=== PATIENT | female | born 1960 | race Caucasian/White ===

== ENCOUNTER 2020-02-09 20:32 | Emergency (ER) | payer OTHER ==
--- NOTE | 2020-02-09 22:47 | EDM.PDOC ---
ED HPI GENERAL MEDICAL PROBLEM - General Chief Complaint: Respiratory Problem Stated Complaint: POSSIBLE COVID-19 Time Seen by Provider: 02/09/20 21:04 Source of Information: Reports: Patient History Limitations: Reports: No Limitations - History of Present Illness INITIAL COMMENTS - FREE TEXT/NARRATIVE: This patient is a 59-year-old female with a past medical history of hyperlipidemia, GERD, depression presenting with infectious symptoms. She reports a 3-day history of nonproductive cough, rhinorrhea, fatigue, body aches. She works as a certified pharmacy technician and was concerned that she was infected with coronavirus. She denies any chest discomfort or shortness of breath, hemoptysis, vomiting, diarrhea, neck stiffness, rash. No self treatment prior to arrival, no other complaints. - Related Data Allergies Allergy/AdvReac Type Severity Reaction Status Date / Time cephalexin [From Keflex] Allergy Rash Verified 02/09/20 21:14 Home Meds: Home Meds Ascorbic Acid [Vitamin C] 1,000 mg PO DAILY 02/09/20 [History] Docusate Sodium [Colace] 250 mg PO DAILY 02/09/20 [History] FLUoxetine HCl [Fluoxetine] 40 mg PO DAILY 02/09/20 [History] Omeprazole 20 mg PO DAILY 02/09/20 [History] Simvastatin 20 mg PO BEDTIME 02/09/20 [History] estradioL [Vagifem] 0.5 mcg PO ASDIRECTED 02/09/20 [History] Past Medical History Cardiovascular History: Reports: High Cholesterol Respiratory History: Reports: Bronchitis, Recurrent Gastrointestinal History: Reports: GERD - Infectious Disease History Infectious Disease History: Reports: Chicken Pox, Mumps - Past Surgical History HEENT Surgical History: Reports: Adenoidectomy, Tonsillectomy Female Surgical History: Reports: Hysterectomy Social & Family History - Family History Family Medical History: Noncontributory - Tobacco Use Smoking Status *Q: Never Smoker - Caffeine Use Caffeine Use: Reports: Coffee - Recreational Drug Use Recreational Drug Use: No ED ROS GENERAL - Review of Systems Review Of Systems: See Below Constitutional: Reports: Malaise. Denies: Fever HEENT: Reports: No Symptoms, Rhinitis. Denies: Ear Pain, Eye Discharge, Eye Pain, Nosebleed, Throat Pain, Throat Swelling, Vision Change Respiratory: Reports: Cough. Denies: Shortness of Breath, Wheezing, Sputum, Hemoptysis Cardiovascular: Denies: Chest Pain, Edema Endocrine: Reports: Fatigue GI/Abdominal: Denies: Abdominal Pain, Diarrhea, Nausea, Vomiting : Denies: Discharge, Dysuria, Flank Pain, Hematuria Musculoskeletal: Denies: Neck Pain, Shoulder Pain, Arm Pain, Back Pain Skin: Denies: Rash Neurological: Denies: Headache Psychiatric: Reports: No Symptoms Hematologic/Lymphatic: Reports: No Symptoms Immunologic: Reports: No Symptoms ED EXAM, GENERAL - Physical Exam Exam: See Below Free Text/Narrative:: Vital signs reviewed. Nursing notes reviewed. Constitutional: Awake, alert, non-distressed. Head: Normocephalic, atraumatic. Eyes: EOMI, conjunctiva normal, no discharge, no scleral icterus. Ears, Nose, Throat: External ears and nose normal, moist oral mucosa. Neck: Supple, normal range of motion, able to flex and extend fully. Cardiovascular: 2+ radial pulse, capillary refill less than 2 seconds. Pulmonary: normal work of breathing, no accessory muscle use. Speaking full sentences, handling secretions without difficulty. CTA BL Abdomen/GI: Soft, nontender, nondistended, no guarding or rigidity, no masses. Musculoskeletal: No deformities. Integumentary: Appropriate color for ethnicity, warm, dry, no pallor or jaundice , no rash. Neurologic: Alert, answering questions appropriately, normal speech, no facial droop, moving all extremities well. Psychiatric: Appropriate mood and affect, normal thought process. Course - Vital Signs Text/Narrative:: 59-year-old female presenting with infectious symptoms. Patient hemodynamically stable, afebrile, well-appearing, looks nontoxic. Differential diagnosis includes but is not limited to: Viral URI, coronavirus infection, pneumonia, sepsis, tonsillitis, epiglottitis, sinusitis, etc. Patient looks nontoxic, mildly tachycardic initially to the low 100s, improved to 91 without intervention. Lungs are clear, no signs of respiratory compromise. No shortness of breath or chest discomfort. Does not appear systemically ill/septic. 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 Suspect that the patient has a viral URI. No evidence of bronchospasm. Did not pursue chest x-rays as the patient is afebrile with normal lung sounds, no rigors, no systemic signs of illness, etc. Plan: Patient is stable to discharge home with outpatient primary care follow- up. Recommended [id number] antitussive medications, cough drops, antihistamines, Tylenol and Motrin. Strict emergency department return precautions were provided, patient indicated understanding. All questions were answered prior to departure. Discharged in good condition. Last Recorded V/S: Last Vital Signs Temp 35.9 C L 02/09/20 21:16 Pulse 102 H 02/09/20 21:16 Resp 17 02/09/20 21:16 BP 144/85 H 02/09/20 21:16 Pulse Ox 95 02/09/20 21:16 - Orders/Labs/Meds Labs: Laboratory Tests 02/09/20 Range/Units 22:15 SARS-CoV-2 RNA (RT-PCR) NEGATIVE (NEGATIVE) Departure - Departure Time of Disposition: 22:46 Disposition: Home, Self-Care 01 Condition: Good Clinical Impression: Viral URI with cough - Discharge Information *PRESCRIPTION DRUG MONITORING PROGRAM REVIEWED*: Not Applicable *COPY OF PRESCRIPTION DRUG MONITORING REPORT IN PATIENT KILLIAN: Not Applicable Instructions: Viral Respiratory Infection Referrals: [facility] - Family Practice [Provider Group] - 1 Week (Follow-up with our family medicine clinic or your primary medical doctor in 1 week if you are not feeling better.) Forms: ED Department Discharge Additional Instructions: Thank you for choosing the [facility] emergency department in [place] for your medical needs today. It was a pleasure caring for you. You were seen in the emergency department for a viral respiratory infection. Your COVID testing was negative. You likely have a viral upper respiratory illness due to another virus. I recommend [id number] Robitussin-DM, cough drops, Tylenol, and ibuprofen as needed for aches or fever. You should follow-up with your doctor in the next 5 to 7 days if you are not feeling better. Return to the ER immediately if you are feeling short of breath or having chest pain. Please return the emergency department immediately if your symptoms worsen or if you feel worse. The following information is given to patients seen in the emergency department who are being discharged. This information is to outline your options for follow -up care. We provide all patients seen in our emergency department with a follow -up referral. The need for follow-up, as well as the timing and circumstances, are variable depending upon the specifics of your emergency department visit. If you don't have a primary care physician on staff, we will provide you with a referral. We always advise you to contact your personal physician following an emergency department visit to inform them of the circumstance of the visit and for follow-up with them and/or the need for any referrals to a consulting specialist. The emergency department will also refer you to a specialist when appropriate. This referral assures that you have the opportunity for follow-up care with a specialist. All of these measure are taken in an effort to provide you with optimal care, which includes your follow-up. Under all circumstances we always encourage you to contact your private physician who remains a resource for coordinating your care. When calling for follow-up care, please make the office aware that this follow-up is from your recent emergency room visit. If for any reason you are refused follow-up, please contact the [facility] Emergency Department at and asked to speak to the emergency department charge nurse. If you do not have a primary care physician that is caring for you, you can contact these clinics below to set up an appointment to establish care: [facility] - Primary Care [address] [place] [id number] [address] [address] Sepsis Event Note (ED) - Evaluation Sepsis Screening Result: No Definite Risk - Focused Exam Vital Signs: Vital Signs Temp Pulse Resp BP Pulse Ox 02/09/20 21:16 35.9 C L 102 H 17 144/85 H 95
== END 2020-02-09 22:56 | disposition home or self-care (01) ==
LOC: MW.ED 20:32
DX: J06.9 Acute upper respiratory infection, unspecified (principal); E78.00 Pure hypercholesterolemia, unspecified; K21.9 Gastro-esophageal reflux disease without esophagitis; Z88.1 Allergy status to other antibiotic agents; Z79.899 Other long term (current) drug therapy
CPT/HCPCS: 99282; 99283; U0002